=== PATIENT | female | born 1995 | race African-American/Black ===

== ENCOUNTER 2019-08-21 23:58 | Emergency (ER) | payer SELFPAY ==
[~2019-08-21] VITALS: Ht 172.7 cm; Wt 90.9 kg
[2019-08-22] MEDS ORDERED: predniSONE 10 MG TABLET PO ONE (01:30)
[2019-08-22] MEDS ORDERED: LORazepam 0.5 MG TABLET PO ONE (01:30)
[2019-08-22] MEDS ORDERED: PRED50TA PO (01:36)
--- NOTE | 2019-08-22 01:36 | PHYS DOC ---
Past Medical History Past Medical History: Asthma Additional Past Medical Histor: pt denies Past Surgical History: No Surgical History Additional Past Surgical Histo: "I HAD A HEART MURMUR DON'T KNOW WHAT THEY DID" Smoking Status: Former Smoker Alcohol Use: None Drug Use: None Adult General Chief Complaint Chief Complaint: SHORTNESS OF BREATH HPI HPI Patient is a 24 year old Armenian female with history of asthma and anxiety presents with active cough with clear sputum with increased shortness of breath over the past 24 hours. Patient reports increased wheezing with repeated albuterol inhaler use with limited or improvement. Patient also reports tingling around her lips and numbness in both hands and arms. Ports chest tightness but denies chest pain. No fevers chills, nausea vomiting or sweats. Denies increased leg pain or swelling. Last menstrual period was 2 weeks ago.[] Review of Systems Review of Systems ROS as per HPI All other systems were reviewed and found to be within normal limits, except as documented in this note. Current Medications Current Medications Current Medications Medications (Trade) Dose Ordered Sig/Anup Start Time Stop Time Status Last Admin Dose Admin Lorazepam (Ativan) 1 mg 1X ONCE 08/22/19 01:30 08/22/19 01:31 DC 08/22/19 01:32 1 MG Prednisone (Prednisone) 50 mg 1X ONCE 08/22/19 01:30 08/22/19 01:31 DC 08/22/19 01:32 50 MG Allergies Allergies Allergies Coded Allergies Type Severity Reaction Last Updated Verified No Known Drug Allergies 01/05/14 No Physical Exam Physical Exam Constitutional: Well developed, anxious, hyperventilating.. [] HENT: Normocephalic, atraumatic, bilateral external ears normal, oropharynx mois, nose normal. [] Eyes: PERRLA, EOMI, conjunctiva normal. [] Neck: Normal range of motion, no tenderness, supple. [] Cardiovascular:Heart rate regular rhythm, no murmur. [] Lungs & Thorax: Patient's nonlabored, breath sounds clear bilaterally. [] Abdomen: Bowel sounds normal, soft, no tenderness. [] Skin: Warm, dry. [] Back: No tenderness. [] Extremities: No tenderness, no edema. [] Neurologic: Alert and oriented X 3, normal motor function, normal sensory function, no focal deficits noted. [] Psychologic: Affect anxious. [] Current Patient Data Vital Signs Vital Signs Date Time Temp Pulse Resp B/P (MAP) Pulse Ox O2 Delivery O2 Flow Rate FiO2 08/22/19 01:27 106 139/98 (112) 97 Room Air 08/22/19 00:11 97.6 22 97.6 EKG EKG [] Radiology/Procedures Radiology/Procedures [] Course & Med Decision Making Course & Med Decision Making Pertinent Labs and Imaging studies reviewed. (See chart for details) [Lung sounds are clear. Patient's oxygen saturation [id number] on room air. Patient anxious, prednisone and Ativan given. Will discharge with instructions continue home albuterol and don't use follow-up with PCP. Return precautions reviewed.] Dragon Disclaimer Dragon Disclaimer This electronic medical record was generated, in whole or in part, using a voice recognition dictation system. Departure Departure Impression: Primary Impression: Asthma attack Additional Impression: Anxiety state Disposition: 01 HOME, SELF-CARE Condition: STABLE Referrals: NO PCP (PCP) Patient Instructions: Anxiety and Panic Attacks, [id number] Additional Instructions: Please take prednisone as directed and continue home albuterol inhaler use. Follow-up with your PCP early next week for reevaluation. Scripts Prednisone (PREDNISONE) 50 Mg Tablet 1 TAB PO DAILY, #5 TAB Prov: DELTA BOUDREAUX DO 08/22/19 Problem Qualifiers DELTA BOUDREAUX DO Aug 22, 2019 01:36
[2019-08-22 01:57] VITALS: BP 128/69
== END 2019-08-22 02:31 | disposition home or self-care (01) ==
LOC: ER 23:58
DX: J45.909 Unspecified asthma, uncomplicated (principal); F41.9 Anxiety disorder, unspecified; R05 Cough; R06.02 Shortness of breath; R07.89 Other chest pain; Z87.891 Personal history of nicotine dependence; Z98.890 Other specified postprocedural states
CPT/HCPCS: 99285; J7512